=== PATIENT | male | born 1955 | race Caucasian/White ===

== ENCOUNTER 2022-09-18 12:10 | Emergency (ER) | payer MEDICARE, OTHER ==
[~2022-09-18] VITALS: Ht 177.8 cm; Wt 96.8 kg
[2022-09-18] MEDS ORDERED: ATORVASTATIN CA20 MG PO (12:59)
[2022-09-18] MEDS ORDERED: LISINOPRIL-HCT1 EAC1 (12:59)
[2022-09-18] MEDS ORDERED: SYNTHROID125 MCG PO (12:59)
[2022-09-18] MEDS ORDERED: ZITHROMAX250 MG PO (13:08)
== END 2022-09-18 13:20 | disposition home or self-care (01) ==
LOC: FSED 12:22
DX: R05.9 Cough, unspecified (principal); J20.9 Acute bronchitis, unspecified; I10 Essential (primary) hypertension; E78.5 Hyperlipidemia, unspecified; E03.9 Hypothyroidism, unspecified; Z20.822 Contact with and (suspected) exposure to COVID-19
CPT/HCPCS: 83518; 87400; 99283; U0002